=== PATIENT | female | born 1950 | race Caucasian/White ===

== ENCOUNTER → 2024-08-17 08:46 | Outpatient (REF) | payer BC, SELFPAY | LOC: HWWDC 08:46 | PROVIDERS: ATTENDING PHYSICIAN Obstetrics & Gynecology; FAMILY PHYSICIAN Internal Medicine; REFERRING PHYSICIAN Internal Medicine Rheumatology | DX: Z12.31 Encounter for screening mammogram for malignant neoplasm of breast (principal); M81.0 Age-related osteoporosis without current pathological fracture | CPT/HCPCS: 77063; 77067; 77080 ==

== ENCOUNTER 2025-05-09 07:45 | Day surgery (SDC) | payer BC, SELFPAY | END 2025-05-09 15:48 | disposition home or self-care (01) | LOC: GI 07:45 | PROVIDERS: ATTENDING PHYSICIAN Internal Medicine; FAMILY PHYSICIAN Internal Medicine | DX: K52.9 Noninfective gastroenteritis and colitis, unspecified (principal); K57.30 Diverticulosis of large intestine without perforation or abscess without bleeding; R12 Heartburn; K29.60 Other gastritis without bleeding | CPT/HCPCS: 45380; 43239; 88305; 88342 ==